=== PATIENT | male | born 1940 | race Caucasian/White ===

== ENCOUNTER → 2017-03-14 | Day surgery (SDC) | payer MEDICARE, BC ==
[~2017-03-14] VITALS: Ht 182.9 cm; Wt 98.6 kg
[~2017-03-14] MED LIST: AMARYL4 MG PO; ASPIRIN LO-DOSE81 MG PO; FLOMAX0.4 MG PO; GLUCOPHAGE1000 MG PO; NORVASC5 MG PO; PRINIVIL OR ZES10 MG PO; TYLENOL WITH C1 EACH PO; ZOCOR20 MG PO
--- NOTE | ~2017-03-14 | OR ---
PATIENT'S NAME: LUIS RAMIREZ [facility] AGE: 77 Y [address] ROOM: [place] [address] LOCATION: [facility] [place] ADMIT DATE: 03/14/2017 OR/Procedure Report DISCHARGE DATE: FAMILY PHYSICIAN: Matthew Miguel MD ATTENDING PHYSICIAN: Jere Samaniego SURGEON: Jere Samaniego MD DIGESTER HAND: DATE OF PROCEDURE: 03/14/2017 PREOPERATIVE DIAGNOSIS: Left nephrolithiasis. POSTOPERATIVE DIAGNOSIS: Left nephrolithiasis. PROCEDURE PERFORMED: Left extracorporeal shock-wave lithotripsy. ANESTHESIA: MAC. COMPLICATIONS: None. INDICATIONS FOR PROCEDURE: The patient is a 77-year-old male, initially complaining of left flank pain. Abdominopelvic CT scan revealed a 12 mm left renal pelvic stone without obstruction. He also noted to have smaller right renal pelvic stones without obstruction. Cystoscopy with stent placement was performed earlier. DETAILS OF PROCEDURE: After informed consent was obtained, the patient was taken to the operating room and placed on the lithotripsy table in a supine position. Fluoroscopy was then used to target his left renal pelvic stone. He received shocks starting at 14 kilovolts and gradually increased to 24 kilovolts. He received a total of 3000 shocks and the stone appeared to fragment with treatment. The patient tolerated the procedure well and was transferred to the recovery room in good condition. MD RODO APONTE/modl /[id number] CC: Matthew Miguel MD d: 03/15/17 1339 t: 04/04/17 0902, OPERATIVE SUMMARY
== END ==
LOC: GPOC 03-13 14:00 → GSDC 07:00
PROC: 0TF4XZZ Fragmentation in Left Kidney Pelvis, External Approach (ICD-10-PCS; principal; 2017-03-14)
DX: N20.0 Calculus of kidney (principal); E11.9 Type 2 diabetes mellitus without complications; I10 Essential (primary) hypertension; E78.00 Pure hypercholesterolemia, unspecified; E78.5 Hyperlipidemia, unspecified; Z85.828 Personal history of other malignant neoplasm of skin; Z98.49 Cataract extraction status, unspecified eye; Z79.82 Long term (current) use of aspirin; Z79.899 Other long term (current) drug therapy; Z98.890 Other specified postprocedural states
CPT/HCPCS: J1956; J2001; J7030